=== PATIENT | female | born 1950 | race Caucasian/White ===

== ENCOUNTER → 2018-09-10 | Outpatient (REF) | payer MEDICARE, MEDICAID ==
[2018-09-10 12:54] LABS: HEMATOCRIT 38.5 % (36.0-47.0); HEMOGLOBIN 12.4 g/dl (12.0-15.5); RED BLOOD COUNT 4.13 10^6/uL (4.00-5.40); WHITE BLOOD COUNT 8.4 10^3/uL (4.0-10.0)
[2018-09-10 12:55] LABS: BASO # 0.1 10^3/uL (0.0-0.2); BASO % 0.6 % (0.0-1.0); EOS # 0.1 10^3/uL (0.0-0.50); EOS % 1.7 % (0.0-3.0); LYMPH # 2.5 10^3/uL (1.5-4.5); LYMPH % 29.3 % (24.0-44.0); MEAN CORPUSCULAR HGB CONC 32.2 g/dl (32.0-36.5); MEAN CORPUSCULAR VOLUME 93.2 fl (80.0-96.0); MONO # 0.5 10^3/uL (0.0-0.8); MONO % 5.7 % (0.0-5.0); NEUTROPHILS # 5.2 10^3/uL (1.8-7.7); NEUTROPHILS % 62.5 % (36.0-66.0); PLATELET COUNT, AUTOMATED 327 10^3/uL (150-450)
[2018-09-10 13:00] LABS: ALT/SGPT 24 U/L (12-78); BILIRUBIN,TOTAL 0.3 MG/DL (0.2-1.0); BLOOD UREA NITROGEN 20 MG/DL (7-18); CARBON DIOXIDE LEVEL 26 MEQ/L (21-32); CHLORIDE LEVEL 112 MEQ/L (98-107); FERRITIN 55 NG/ML (8-252); GLOMERULAR FILTRATION RATE > 60.0 (>39); GLUCOSE, FASTING 86 MG/DL (70-100); IRON (FE) 34 UG/DL (50-170); POTASSIUM SERUM 5.3 MEQ/L (3.5-5.1); SODIUM LEVEL 142 MEQ/L (136-145); TOTAL PROTEIN 6.6 GM/DL (6.4-8.2)
[2018-09-10 13:06] LABS: TOTAL 25(OH) VITAMIN D 39.5 NG/ML (30.0-100.0); VITAMIN B12 LEVEL 1074 PG/ML (247-911)
[2018-09-11 11:15] LABS: CA19-9 TUMOR MARKER,CARBOHYDRA 46.8 U/ML (<35.0)
== END ==
LOC: M LABDRAWP 10:09
PROVIDERS: ATTEND Physician Assistant Medical
DX: R63.4 Abnormal weight loss (principal); E53.8 Deficiency of other specified B group vitamins; Z98.84 Bariatric surgery status; D50.9 Iron deficiency anemia, unspecified